=== PATIENT | female | born 2005 | race Two or more races ===

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

== ENCOUNTER 2023-08-19 18:03 | Emergency (ER) | payer MEDICAID ==
[~2023-08-19] VITALS: Ht 167.6 cm; Wt 65.9 kg
[2023-08-19 18:13] VITALS: TEMP 98.5
[2023-08-19 18:29] VITALS: BP 113/66; PULSE 64; RESP 18; O2SAT 97
[2023-08-19] MEDS: HYDROcodone-ACET 10/325MG TAB PO ONE (18:39)
[2023-08-19] MEDS ORDERED: IBUP1TAB5 PO (19:22)
== END 2023-08-19 20:30 | disposition home or self-care (01) ==
LOC: ER 18:03
DX: S63.8X1A Sprain of other part of right wrist and hand, initial encounter (principal); S63.696A Other sprain of right little finger, initial encounter; W22.8XXA Striking against or struck by other objects, initial encounter; Y93.89 Activity, other specified; Y92.89 Other specified places as the place of occurrence of the external cause; Y99.8 Other external cause status
CPT/HCPCS: 29125; 73130

== ENCOUNTER 2023-09-15 05:13 | Emergency (ER) | payer MEDICAID ==
[~2023-09-15] VITALS: Ht 165.1 cm; Wt 65.8 kg
[~2023-09-15 05:13] MED LIST: IBUP1TAB5 PO
[2023-09-15 06:34] VITALS: BP 103/79; PULSE 68; RESP 18; TEMP 97.5; O2SAT 96
[2023-09-15] MEDS ORDERED: CEPH500C PO (06:46)
[2023-09-15] MEDS ORDERED: TRIA0.02 TOP (06:46)
== END 2023-09-15 07:05 | disposition home or self-care (01) ==
LOC: ER 05:13
DX: S90.861A Insect bite (nonvenomous), right foot, initial encounter (principal); Z79.899 Other long term (current) drug therapy; W57.XXXA Bitten or stung by nonvenomous insect and other nonvenomous arthropods, initial encounter; Y93.89 Activity, other specified; Y92.89 Other specified places as the place of occurrence of the external cause; Y99.8 Other external cause status